=== PATIENT | female | born 1975 | race Hispanic/Latino ===

== ENCOUNTER → 2023-12-22 | Day surgery (SDC) | payer BC, OTHER ==
[~2023-12-22] MED LIST: BENICAR20 MG PO; BUSPIRONE HCL5 MG PO; ESTRADIOL1 MG PO; HYDROCHLOROTHIA25 MG PO; INDERAL LA80 MG PO; LACTATED RINGER'S 1,000 ML ONE; PROVERA5 MG PO
[2023-12-22 12:55] VITALS: BP 114/80; PULSE 89; RESP 17; TEMP 97; O2SAT 97
== END | disposition home or self-care (01) ==
LOC: OR 10:50
PROVIDERS: ATTEND Internal Medicine Gastroenterology
DX: Z12.11 Encounter for screening for malignant neoplasm of colon (principal); K57.30 Diverticulosis of large intestine without perforation or abscess without bleeding; K62.89 Other specified diseases of anus and rectum; K64.9 Unspecified hemorrhoids; Z71.3 Dietary counseling and surveillance; I10 Essential (primary) hypertension; F41.9 Anxiety disorder, unspecified; F32.A Depression, unspecified; Z01.810 Encounter for preprocedural cardiovascular examination; Z79.899 Other long term (current) drug therapy; Z68.28 Body mass index [BMI] 28.0-28.9, adult
CPT/HCPCS: 45378; 45380; 93005